=== PATIENT | male | born 1995 | race Caucasian/White ===

== ENCOUNTER 2020-06-26 10:03 | Outpatient (CLI) | payer OTHER, SELFPAY | END 2020-06-26 10:04 | disposition home or self-care (01) | LOC: ANHCOVIDVC 10:03 | DX: Z23 Encounter for immunization (principal) | CPT/HCPCS: 0001A; 91300 ==

== ENCOUNTER 2020-07-17 10:08 | Outpatient (CLI) | payer OTHER, SELFPAY | END 2020-07-17 10:09 | disposition home or self-care (01) | LOC: ANHCOVIDVC 10:08 | DX: Z23 Encounter for immunization (principal) | CPT/HCPCS: 0002A; 91300 ==